=== PATIENT | female | born 1960 | race Caucasian/White ===

== ENCOUNTER → 2024-01-23 15:22 | Outpatient (REF) | payer MEDICARE, OTHER, SELFPAY | LOC: HWRAD 15:22 | PROVIDERS: ATTENDING PHYSICIAN Family Medicine | DX: S09.93XA Unspecified injury of face, initial encounter (principal) | CPT/HCPCS: 70486 ==

== ENCOUNTER 2024-05-09 02:28 | Emergency (ER) | payer MEDICARE, OTHER, SELFPAY ==
[2024-05-09] VITALS (8 sets, daily range): BP systolic 106–140; BP diastolic 65–121
[2024-05-09] MEDS: TORADOL 15 MG IV ×2 (02:59→04:47)
[2024-05-09] MEDS: NSS 1000 IV (03:03)
[2024-05-09] MEDS: ZOFRAN 4 MG IV (03:15)
[2024-05-09] MEDS: MORPHINE SULFATE 4 MG IV (03:15)
[2024-05-09 03:18] LABS: % Basophils 0.5 % (0-2); % Eosinophils 0.2 % (0-6); % Immature Granulocytes 0.2 % (0-0.5); % Monocytes 6.2 % (1.7-9.3); % Neutrophils 67.9 % (42.2-75.2); Absolute Lymphocytes 2.2 10^3/uL (1.2-3.4); Absolute Monocytes 0.6 10^3/uL (0.1-0.6); Hematocrit 36.3 % (37.0-47.0); Hemoglobin 12.9 g/dL (12.0-16.0); Mean Corp Hgb Conc. 35.5 g/dL (33.0-37.0); Mean Corpuscular Hgb 31.6 pg (27.0-31.0); Mean Platelet Volume 9.1 fL (7.4-10.4); Nucleated Red Blood Cells % 0 %; Platelet Count 320 10^3/uL (130-400); Red Blood Cell Count 4.08 10^6/uL (4.20-5.40); Red Cell Dist. Width 12.6 % (11.5-14.5); White Blood Cell Count 8.9 10^3/uL (4.8-10.8)
[2024-05-09] MEDS: DILAUDID 0.5 MG IV (03:30)
[2024-05-09 03:43] LABS: ALT (SGPT) 29 U/L (0-35); AST (SGOT) 32 U/L (14-36); Albumin 4.9 g/dl (3.5-5.0); Alkaline Phosphatase 89 U/L (38-126); Blood Urea Nitrogen 20 mg/dl (7-17); Calcium 9.9 mg/dl (8.4-10.2); Carbon Dioxide 26 mmol/L (22-30); Chloride 99 mmol/L (98-107); Glucose 127 mg/dl (70-99); Potassium 4.2 mmol/L (3.5-5.1); Sodium 135 mmol/L (135-145); Total Bilirubin 0.5 mg/dl (0.2-1.3); Total Protein 7.7 g/dl (6.3-8.2); eGFR > 60.00
[2024-05-09 04:16] LABS: Urine Albumin 1+ (Neg - Trace); Urine Bilirubin Negative (Negative); Urine Character Clear (Clear); Urine Color Yellow; Urine Glucose Negative (Negative); Urine Ketone Negative (Negative); Urine Leukocyte Negative (Negative); Urine Nitrite Negative (Negative); Urine Occult Blood Negative (Negative); Urine Urobilinogen Negative (Neg - 1+)
[2024-05-09 04:40] LABS: Urine Red Blood Cell 0-2 /HPF (0-2); Urine Squamous Cell 0-2 /LPF (Few); Urine White Cell 0-2 /HPF (0-5)
[2024-05-09 04:42] LABS: Lactic Acid 0.9 mmol/L (0.7-2.0)
[2024-05-09] MEDS: LIDOCAINE 4% PATCH 1 PATCH TOPICAL (04:47)
[2024-05-09] MEDS: FLEXERIL 10 MG PO (05:02)
[2024-05-09 05:40] LABS: Amphetamines Negative (Negative); Barbiturates Negative (Negative); Benzodiazepines Negative (Negative); Buprenorphine Positive (Negative); Cocaine Negative (Negative); Marijuana Negative (Negative); Methadone Negative (Negative); Methamphetamines Negative (Negative); Opiates Positive (Negative); Phencyclidine Negative (Negative); Tricyclic Antidepressants Negative (Negative)
[2024-05-09 05:48] LABS: Fentanyl, Urine Negative (Negative)
[2024-05-09] MEDS: OFIRMEV 100 IV (06:02)
--- NOTE | 2024-05-09 06:17 | ED.GENMED ---
History of Present Illness
<DO Avelino Shane Last Filed: 05/09/24 09:10>
General
Chief Complaint: Flank Pain
Source: patient and previous hospital records (Limited outpatient family practice records.)
Exam Limitations: none
Time Seen by Provider: 05/09/24 04:11
Nursing documentation reviewed up to this point in time: agreed with
History of Present Illness
History of Present Illness:
This is a 64-year-old woman who has history of migraine headaches, history of chronic pain, had been maintained on narcotic pain medications through pain management but narcotic medications were weaned in 2020. Currently maintained on Subutex.
She presents with 2-day history of left low back pain without insightful injury. Admits that left back pain seems worse with movement, worse with rotation of her trunk and tonight left low back pain seems much worse with occasional radiation to her
left abdomen. No other associated symptoms, she denies nausea or vomiting, no fever no chills, no dysuria and urgency and or hematuria. She denies cough nor shortness of breath, no diarrhea nor constipation.
No history of similar episodes of pain.
No prior history of kidney stone but with current pain she was quite concerned that she is passing a kidney stone.
Remote history of ovarian cysts. Has been menopausal for at least 10 years.
Past History
<DO Avelino Shane Last Filed: 05/09/24 09:10>
Past History
ED Past Medical History: Other (Migraine headaches, chronic pain-maintained on Subutex) and Other (Polycystic ovarian disease, infertility)
ED Past Surgical History: Gynecological
Social History
Tobacco: Non-smoker
Alcohol: None
Personal:
Living: with family
Employment: Retired
Family History
Family History: Other (Her mother had uterine bleeding at 40 and her sister had fibroids)
Phy Exam
<DO Avelino Shane Last Filed: 05/09/24 09:10>
Physical Exam
Physical Exam:
GENERAL: 64-year-old woman appears younger than stated age. Bright and alert, mildly anxious, somewhat restless but moves about with ease. Vital signs within normal limits.
EYE: anicteric
NECK: Supple, nontender, no meningismus, no significant adenopathy.
ENT: oral mucosa is moist. No rhinorrhea.
CARDIAC: Regular rate and rhythm. no murmur.
LUNGS: Clear breath sounds bilaterally, no acute respiratory distress, no wheezes/rales/rhonchi
ABDOMEN: Soft, nondistended, without focal tenderness, no r/g, no cvat. normoactive BS.
BACK: No midline bony tenderness. Moderate left lumbar paravertebral muscle spasm with mild to moderate local tenderness left paravertebral region. Straight leg raising is negative bilaterally.
NEUROLOGICAL: Alert and oriented x3, no focal neuro deficits. Gait is bay and steady.
SKIN: Warm and dry, normal color, skin intact. No rash.
MUSCULOSKELETAL: No C/C/E. peripheral pulses are full and equal b/l. No palpable tenderness.
PSYCH: Normal and appropriate interaction.
Course
<Isabella Hernandez, DO - Last Filed: 05/09/24 09:10>
Orders/Labs/Results
Orders:
Orders
05/09/24 02:37
CT Abd/pel Without Iv Or Oral Urgent
Comment:
Reason For Exam: left flank pain
Ketorolac [Toradol] 15 mg IV NOW STA
05/09/24 02:38
0.9% Sodium Chloride 1000 ml [Nss] 1,000 ml IV BOLUS
05/09/24 03:06
Complete Blood Count/With Diff Urgent
Comprehensive Metabolic Panel Urgent
Fentanyl, Urine Urgent
Urinalysis Reflex To Culture Urgent
Date Specimen was Collected: 05/09/24
Time Specimen was Collected: 02:50
Urine Drug Abuse Screen Urgent
Date Specimen was Collected: 05/09/24
Time Specimen was Collected: 02:50
Urine Microscopic Reflex Cult Urgent
05/09/24 03:11
Morphine Sulfate 4 mg IV NOW STA
Ondansetron Injectable [Zofran] 4 mg IV NOW STA
05/09/24 03:28
HYDROmorphone [Dilaudid] 0.5 mg .ROUTE .STK-MED ONE
05/09/24 03:30
HYDROmorphone [Dilaudid] 0.5 mg IV NOW STA
05/09/24 04:19
Ketorolac [Toradol] 15 mg IV NOW STA
Lidocaine [Lidocaine 4% Patch] 1 patch TOPICAL NOW STA
Apply Lidocaine patch(s) to:: LEFT LUMBAR BACK
05/09/24 04:22
Lactic Acid Urgent
05/09/24 05:01
Cyclobenzaprine HCl [Flexeril] 10 mg .ROUTE .STK-MED ONE
05/09/24 05:02
Cyclobenzaprine HCl [Flexeril] 10 mg PO NOW STA
05/09/24 05:08
Add On- LAB Urgent
Tests Added?: urine drug screen
05/09/24 05:56
Acetaminophen 1000MG/100Ml [Ofirmev] 1,000 mg in 100 ml .ROUTE .STK-MED
05/09/24 06:01
Acetaminophen 1000MG/100Ml [Ofirmev] 1,000 mg in 100 ml IV ONCE
Acetaminophen IV Indication:: ED Narcotic History-ONCE
05/09/24 06:33
diazePAM [Valium Injection] 5 mg IV NOW STA
05/09/24 07:32
Enema- Treatment ONCE
Type: Milk of Molasses
05/09/24 08:55
Iohexol [Omnipaque] 50 ml .ROUTE .STK-MED ONE
05/09/24 09:03
CT Abd/pel W Iv And Oral Contr Urgent
Comment:
Reason For Exam: intractable LLQ pain
Iohexol [Omnipaque] See Protocol PO NOW STA
Abnormal Lab Results
05/09/24
03:06
RBC 4.08 L 10^6/uL
(4.20-5.40)
Hct 36.3 L %
(37.0-47.0)
MCH 31.6 H pg
(27.0-31.0)
BUN 20 H mg/dl
(7-17)
Glucose 127 H mg/dl
(70-99)
Urine Albumin (Reflex) 1+ A
(Neg - Trace)
Urine Opiates Screen Positive H
(Negative)
Ur Buprenorphine Positive H
(Negative)
05/09/24 03:06
05/09/24 03:06
Vital Signs
Initial and Last Documented VS:
Initial Vital Signs
Temp Pulse Resp BP Pulse Ox
98.2 F 138 26 120/94 100
05/09/24 02:30 05/09/24 02:30 05/09/24 02:30 05/09/24 02:30 05/09/24 02:30
Last Documented Vital Signs
Temp Pulse Resp BP Pulse Ox
98.2 F 101 27 132/65 98
05/09/24 02:30 05/09/24 12:04 05/09/24 09:30 05/09/24 12:04 05/09/24 12:04
<Jennifer Martinez MD - Last Filed: 05/09/24 12:22>
Orders/Labs/Results
Orders:
Orders
05/09/24 02:37
CT Abd/pel Without Iv Or Oral Urgent
Comment:
Reason For Exam: left flank pain
Ketorolac [Toradol] 15 mg IV NOW STA
05/09/24 02:38
0.9% Sodium Chloride 1000 ml [Nss] 1,000 ml IV BOLUS
02/13/25 03:06
Complete Blood Count/With Diff Urgent
Comprehensive Metabolic Panel Urgent
Fentanyl, Urine Urgent
Urinalysis Reflex To Culture Urgent
Date Specimen was Collected: 05/09/24
Time Specimen was Collected: 02:50
Urine Drug Abuse Screen Urgent
Date Specimen was Collected: 05/09/24
Time Specimen was Collected: 02:50
Urine Microscopic Reflex Cult Urgent
05/09/24 03:11
Morphine Sulfate 4 mg IV NOW STA
Ondansetron Injectable [Zofran] 4 mg IV NOW STA
05/09/24 03:28
HYDROmorphone [Dilaudid] 0.5 mg .ROUTE .STK-MED ONE
05/09/24 03:30
HYDROmorphone [Dilaudid] 0.5 mg IV NOW STA
05/09/24 04:19
Ketorolac [Toradol] 15 mg IV NOW STA
Lidocaine [Lidocaine 4% Patch] 1 patch TOPICAL NOW STA
Apply Lidocaine patch(s) to:: LEFT LUMBAR BACK
05/09/24 04:22
Lactic Acid Urgent
05/09/24 05:01
Cyclobenzaprine HCl [Flexeril] 10 mg .ROUTE .STK-MED ONE
05/09/24 05:02
Cyclobenzaprine HCl [Flexeril] 10 mg PO NOW STA
05/09/24 05:08
Add On- LAB Urgent
Tests Added?: urine drug screen
05/09/24 05:56
Acetaminophen 1000MG/100Ml [Ofirmev] 1,000 mg in 100 ml .ROUTE .STK-MED
05/09/24 06:01
Acetaminophen 1000MG/100Ml [Ofirmev] 1,000 mg in 100 ml IV ONCE
Acetaminophen IV Indication:: ED Narcotic History-ONCE
05/09/24 06:33
diazePAM [Valium Injection] 5 mg IV NOW STA
05/09/24 07:32
Enema- Treatment ONCE
Type: Milk of Molasses
05/09/24 08:55
Iohexol [Omnipaque] 50 ml .ROUTE .STK-MED ONE
05/09/24 09:03
CT Abd/pel W Iv And Oral Contr Urgent
Comment:
Reason For Exam: intractable LLQ pain
Iohexol [Omnipaque] See Protocol PO NOW STA
Abnormal Lab Results
05/09/24
03:06
RBC 4.08 L 10^6/uL
(4.20-5.40)
Hct 36.3 L %
(37.0-47.0)
MCH 31.6 H pg
(27.0-31.0)
BUN 20 H mg/dl
(7-17)
Glucose 127 H mg/dl
(70-99)
Urine Albumin (Reflex) 1+ A
(Neg - Trace)
Urine Opiates Screen Positive H
(Negative)
Ur Buprenorphine Positive H
(Negative)
05/09/24 03:06
05/09/24 03:06
Vital Signs
Initial and Last Documented VS:
Initial Vital Signs
Temp Pulse Resp BP Pulse Ox
98.2 F 138 26 120/94 100
05/09/24 02:30 05/09/24 02:30 05/09/24 02:30 05/09/24 02:30 05/09/24 02:30
Last Documented Vital Signs
Temp Pulse Resp BP Pulse Ox
98.2 F 101 27 132/65 98
05/09/24 02:30 05/09/24 12:04 05/09/24 09:30 05/09/24 12:04 05/09/24 12:04
<Isabella Hernandez, DO - Last Filed: 05/09/24 09:10>
MDM/Problems Addressed
Differential Diagnosis Includes:
Concern for left ureteric stone, musculoskeletal back pain.
Abdomen is soft without appreciable tenderness, acute intra-abdominal pathology is less likely.
Chronic conditions affecting care: Other (Chronic pain/maintained on Subutex)
<Isabella Hernandez DO - Last Filed: 05/09/24 09:10>
*Radiology
Radiology exam reviewed: radiology read reviewed (CT abdomen pelvis is unremarkable save for mild constipation.)
*Pulse Oximetry
Patient hypoxic: no
*Critical Care Note
Total Time (30-74mins, 75-104mins- exclusive of procedures): Not Applicable
<Isabella Hernandez DO - Last Filed: 05/09/24 09:10>
Update Note
Update Note:
06:30
Patient continues with significant left-sided back pain despite IV Toradol, IV morphine, IV Dilaudid.
Thus far no improvement with lidocaine patch and oral Flexeril.
Somewhat restless but able to lie back supine without difficulty and does note that left low back pain is worse when she flexes her back, worse when she rotates.
CT abdomen pelvis is unremarkable. No evidence of ureteric stone, no bowel wall inflammation. No evidence of obstruction. Mildly distended gallbladder but no evidence of stones and patient continues to have no upper abdominal pain, no right sided
abdominal pain. Overall abdominal exam is benign without appreciable tenderness to palpation.
Exam is remarkable for moderate left lumbar paravertebral muscle spasm and I suspect her back pain is musculoskeletal in nature. There is no radicular signs or symptoms. No focal neuro deficits.
Labs are reassuring and within normal limits.
Urinalysis unremarkable. Lactic acid is normal.
Will trial IV Tylenol as well as IV dose of Valium.
Lengthy discussion with patient that further IV narcotics will be avoided as thus far they have been ineffective and we will avoid narcotics going forward as patient chronically maintained on Subutex.
07:30
After IV dose of Valium patient noted marked improvement in left low back pain. Sleeping comfortably for at least 45 minutes.
She is now awake, complains of some left lower quadrant pain and again is somewhat restless.
Ambulatory to the bathroom with steady unaided gait. Has voided without difficulty.
Abdomen is soft, mild tenderness left lower quadrant without rebound or guarding.
CAT scan does note some constipation without bowel obstruction.
Will trial an enema.
09:00
No significant results after enema. Patient continues with left lower quadrant abdominal pain, some left low back pain. Continues to have no radicular signs or symptoms.
Vital signs within normal limits.
Will plan for CT abdomen pelvis with oral and IV contrast. Concern for acute intra-abdominal inflammatory pathology that was missed on dry scan.
<Jennifer Martinez MD - Last Filed: 05/09/24 12:22>
Update Note
Update Note:
06:30
Patient continues with significant left-sided back pain despite IV Toradol, IV morphine, IV Dilaudid.
Thus far no improvement with lidocaine patch and oral Flexeril.
Somewhat restless but able to lie back supine without difficulty and does note that left low back pain is worse when she flexes her back, worse when she rotates.
CT abdomen pelvis is unremarkable. No evidence of ureteric stone, no bowel wall inflammation. No evidence of obstruction. Mildly distended gallbladder but no evidence of stones and patient continues to have no upper abdominal pain, no right sided
abdominal pain. Overall abdominal exam is benign without appreciable tenderness to palpation.
Exam is remarkable for moderate left lumbar paravertebral muscle spasm and I suspect her back pain is musculoskeletal in nature. There is no radicular signs or symptoms. No focal neuro deficits.
Labs are reassuring and within normal limits.
Urinalysis unremarkable. Lactic acid is normal.
Will trial IV Tylenol as well as IV dose of Valium.
Lengthy discussion with patient that further IV narcotics will be avoided as thus far they have been ineffective and we will avoid narcotics going forward as patient chronically maintained on Subutex.
07:30
After IV dose of Valium patient noted marked improvement in left low back pain. Sleeping comfortably for at least 45 minutes.
She is now awake, complains of some left lower quadrant pain and again is somewhat restless.
Ambulatory to the bathroom with steady unaided gait. Has voided without difficulty.
Abdomen is soft, mild tenderness left lower quadrant without rebound or guarding.
CAT scan does note some constipation without bowel obstruction.
Will trial an enema.
09:00
No significant results after enema. Patient continues with left lower quadrant abdominal pain, some left low back pain. Continues to have no radicular signs or symptoms.
Vital signs within normal limits.
Will plan for CT abdomen pelvis with oral and IV contrast. Concern for acute intra-abdominal inflammatory pathology that was missed on dry scan.
12:[address] with IV and p.o. contrast showed no acute disease. Patient appears well and comfortable. I did go over her results with her and she is happy to go home.
ED Attending Note
<Isabella Hernandez DO - Last Filed: 05/09/24 09:10>
-
Portions of this chart may have been created with voice recognition software.� Occasional wrong word or��sound alike� substitutions may have occurred due to the inherent limitations of voice recognition software.
Discharge Plan
Departure
Discharge Problem:
Acute left-sided low back pain
Instructions: Low back pain - ED discharge instructions
Prescriptions:
No Action
rizatriptan 10 mg Tablet
0 mg PO .COMPLEX
Rx Instructions:
take 1 tab at onset of headache; if no relief may repeat 1 tab after at least 2 hrs; max = 3 tabs/24 hr
buprenorphine-naloxone 8-2 mg film
1.5 film buccal DAILY
Patient Comments:
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
Referrals:
Kaela Adam DO [Active] - Call in 1-3 days for appt
UNKNOWN - PT DOES,NOT KNOW [Family Provider] -
Interventions
Interventions:
*Risk Screen - Suicide Last Done: 05/09/24 02:30
*General Assessment Last Done: 05/09/24 04:53
*Neglect/Abuse Screening Last Done: 05/09/24 02:30
ED- Fall Risk Assessment Last Done: 05/09/24 04:53
*ED COVID-19 Vaccine History Last Done: 05/09/24 04:57
TQ-Berdap-Gagccxlqpo Assessment Last Done: 05/09/24 04:53
ED-Female Genitourinary Assessment Last Done: 05/09/24 04:53
Discharge Date and Time
Print Language: [id number]
[2024-05-09] MEDS: VALIUM INJECTION 5 MG IV (06:38)
[2024-05-09] MEDS: OMNIPAQUE 50 ML PO (09:06)
== END 2024-05-09 12:31 | disposition home or self-care (01) ==
LOC: EMR 02:28
PROVIDERS: Emergency Medicine; EMERGENCY PHYSICIAN Emergency Medicine
DX: M54.50 Low back pain, unspecified (principal); R10.32 Left lower quadrant pain; M62.830 Muscle spasm of back; R11.2 Nausea with vomiting, unspecified; K82.8 Other specified diseases of gallbladder; G89.29 Other chronic pain; G43.909 Migraine, unspecified, not intractable, without status migrainosus; E28.2 Polycystic ovarian syndrome; Z79.891 Long term (current) use of opiate analgesic; Z86.16 Personal history of COVID-19
CPT/HCPCS: 99284; 96375 ×5; 96361; 96374; 96376; 74176; 74177; 80053; 80306; 80307; 81003; 81015; 83605; 85025; Q9967

== ENCOUNTER → 2024-07-01 10:31 | Outpatient (REF) | payer MEDICARE, OTHER, SELFPAY | LOC: HWRAD 10:31 | PROVIDERS: ATTENDING PHYSICIAN Family Medicine; FAMILY PHYSICIAN Family Medicine | DX: E28.2 Polycystic ovarian syndrome (principal); K43.9 Ventral hernia without obstruction or gangrene; R10.30 Lower abdominal pain, unspecified | CPT/HCPCS: 76705 ==

== ENCOUNTER → 2024-07-10 15:50 | Outpatient (REF) | payer MEDICARE, OTHER, SELFPAY | LOC: HWRAD 15:50 | PROVIDERS: ATTENDING PHYSICIAN Family Medicine; REFERRING PHYSICIAN Surgery | DX: R22.2 Localized swelling, mass and lump, trunk (principal) | CPT/HCPCS: 74019 ==